=== PATIENT | male | born 1960 | race Caucasian/White ===

== ENCOUNTER 2025-01-18 20:26 | Inpatient (IN) | payer BC ==
[~2025-01-18] VITALS: Ht 188 cm; Wt 94.8 kg
[2025-01-18 21:15] LABS: BASOPHILS % 0.3 % (0.0-2.0); EOSINOPHILS % 1.2 % (0.0-5.0); HEMATOCRIT. 50.9 % (42.0-52.0); HEMOGLOBIN. 16.5 g/dL (14.0-18.0); LYMPHOCYTES % 33.1 % (20.0-50.0); MEAN PLATELET VOLUME 7.8 fl (7.4-10.4); MONOCYTES % 5.1 % (2.0-8.0); NEUTROPHILS % 60.3 % (40.0-76.0); PLATELET 261 x1000/uL (130-400); RED BLOOD CELL COUNT 5.33 mill/uL (4.7-6.1); RED CELL DISTRIBUTION WIDTH 14.2 % (11.6-14.6)
[2025-01-18] MEDS: DIPHENHYDRAMINE 50MG/ML VIAL IV ONE (21:21)
[2025-01-18] MEDS: METHYLPREDNISOLONE SOD SUCC 125MG/2ML (ACT-O-VIAL) IV ONE (21:21)
[2025-01-18] MEDS: FAMOTIDINE 20MG/2ML VIAL IV ONE (21:23)
[2025-01-18 22:07] LABS: CREATININE 1.0 mg/dL (0.6-1.3); UREA NITROGEN BLOOD 11 mg/dL (9-23)
[2025-01-18 22:08] LABS: TROPONIN I HIGH SENSITIVITY 12 ng/L (3.0-53)
[2025-01-18] MEDS: EPINEPHRINE 1:1000 1 MG/ML AMP INJ ONE (22:55)
[2025-01-19] VITALS (9 sets, daily range): BP systolic 101–127; BP diastolic 65–85; PULSE 75–87; RESP 15–23; TEMP 36.3–37.4; O2SAT 74–95
[2025-01-19] MEDS ORDERED: ONDANSETRON HCL 4MG/2ML INJ IV PRN (00:30)
[2025-01-19] MEDS ORDERED: ACETAMINOPHEN 325MG TABLET PO PRN ×2 (00:30)
[2025-01-19] MEDS: SODIUM CHLORIDE 0.9% 1,000 ML IV SCH (00:30)
[2025-01-19] MEDS ORDERED: IPRATROPIUM/ALBUTEROL 0.5-3(2.5)MG/3ML NEB HHN PRN (00:30)
[2025-01-19] MEDS ORDERED: FAMOTIDINE 20MG/2ML VIAL IV SCH (00:30)
[2025-01-19] MEDS: KCL 20MEQ/100ML PREMIX 100 ML IV NR (02:13)
[2025-01-19] MEDS: METHYLPREDNISOLONE SOD SUCC 40MG/ML (ACT-O-VIAL) IV SCH (02:15)
[2025-01-19 03:54] LABS: *AMPHETAMINES SCREEN URINE NEGATIVE (NEGATIVE); *BARBITURATES SCREEN URINE NEGATIVE (NEGATIVE); *BENZODIAZEPINES SCREEN URINE NEGATIVE (NEGATIVE); *COCAINE SCREEN URINE NEGATIVE (NEGATIVE); CANNABINOID URINE SCREEN NEGATIVE (NEGATIVE); ECSTASY MDMA SCREEN URINE NEGATIVE (NEGATIVE); METHADONE URINE SCREEN NEGATIVE (NEGATIVE); OPIATES URINE SCREEN NEGATIVE (NEGATIVE); PHENCYCLIDINE URINE SCREEN NEGATIVE (NEGATIVE)
[2025-01-19 03:59] LABS: COLOR URINE YELLOW (YELLOW)
[2025-01-19 04:00] LABS: CLARITY URINE CLEAR (CLEAR); GLUCOSE URINE 1+ (NEGATIVE); KETONES URINE NEGATIVE (NEGATIVE); LEUKOCYTE ESTERASE URINE NEGATIVE (NEGATIVE); NITRITE URINE NEGATIVE (NEGATIVE); OCCULT BLOOD URINE NEGATIVE (NEGATIVE); PH URINE 5.5 (4.5-8.0); PROTEIN URINE NEGATIVE (NEGATIVE); SPECIFIC GRAVITY URINE 1.007 (1.005-1.030); UROBILINOGEN URINE 0.2 E.U./dL (0.2-1.0)
[2025-01-19] MEDS ORDERED: PIPERACILLIN/TAZO 3.375G/50ML 50 ML IV SCH (06:00)
[2025-01-19 06:38] LABS: TROPONIN I HIGH SENSITIVITY 21 ng/L (3.0-53)
[2025-01-19 06:41] LABS: ASPARTATE AMINOTRANSFERASE 21 IU/L (<34)
[2025-01-19 06:42] LABS: BILIRUBIN DIRECT 0.1 mg/dL (<=3.0); BILIRUBIN TOTAL 0.5 mg/dL (0.1-1.0); PROTEIN TOTAL 6.9 g/dL (6.0-8.3)
[2025-01-19] MEDS: FAMOTIDINE 20MG/2ML VIAL IV SCH (09:42)
[2025-01-19] MEDS: DIPHENHYDRAMINE 50MG/ML VIAL IV SCH (09:43)
[2025-01-19 11:02] LABS: FOLIC ACID (FOLATE) SERUM 6.23 ng/mL (>5.38); VITAMIN B12 SERUM 400 pg/mL (211-911)
[2025-01-19] MEDS ORDERED: DEXTROSE 50% WATER 50ML SYRINGE IV PRN (16:45)
[2025-01-19] MEDS: BLOOD SUGAR DIAGNOSTIC STRIP TEST SCH (17:30)
[2025-01-19] MEDS: INSULIN LISPRO 100 UNITS/ML SUBCUT SCH (18:00)
[2025-01-20] VITALS (8 sets, daily range): BP systolic 104–154; BP diastolic 63–95; PULSE 62–84; RESP 14–18; TEMP 36.7–36.9; O2SAT 92–98
[2025-01-20 07:12] LABS: CREATININE 0.9 mg/dL (0.6-1.3); T4 FREE 1.00 ng/dL (0.89-1.76); TRIGLYCERIDE 124 mg/dL (0-150); UREA NITROGEN BLOOD 14 mg/dL (9-23)
[2025-01-20 07:13] LABS: LDL CHOLESTEROL 176 mg/dL (5-100)
[2025-01-20 09:01] LABS: HEMATOCRIT. 43.2 % (42.0-52.0); HEMOGLOBIN. 14.6 g/dL (14.0-18.0); MEAN PLATELET VOLUME 8.1 fl (7.4-10.4); PLATELET 269 x1000/uL (130-400); RED BLOOD CELL COUNT 4.70 mill/uL (4.7-6.1); RED CELL DISTRIBUTION WIDTH 13.8 % (11.6-14.6)
[2025-01-20] MEDS ORDERED: METH4TAB95 MT (12:27)
[2025-01-20] MEDS ORDERED: EPIN0.3P3 IM (12:27)
[2025-01-20] MEDS ORDERED: ATOR20TA65 PO (12:27)
[2025-01-20 15:39] LABS: LYMPHOCYTES % MANUAL 9.0 % (20.0-50.0); MONOCYTES % MANUAL 1.0 % (2.0-8.0); NEUTROPHILS % MANUAL 90.0 % (45.0-75.0); PLATELET ESTIMATE NORMAL
[2025-01-21 05:11] LABS: ETHANOL URINE Negative % (Cutoff=0.020)
== END 2025-01-20 21:00 | disposition home or self-care (01) | DRG 916 ==
LOC: ER 20:26 → 5EST 22:36 → EDBEDREQTM 22:42 → EDBEDREQ 22:42 → ENRESERV 01-19 00:19
PROVIDERS: ADMIT Hospitalist; ATTEND Hospitalist
DX: T78.09XA Anaphylactic reaction due to other food products, initial encounter (principal); E87.20 Acidosis, unspecified; D72.829 Elevated white blood cell count, unspecified; E87.6 Hypokalemia; R73.9 Hyperglycemia, unspecified; Y92.89 Other specified places as the place of occurrence of the external cause
CPT/HCPCS: 36415; 71045; 80048; 80061; 80076; 80305; 80320; 81003; 82040; 82550; 82607; 82746; 82962; 83036; 83605; 83735; 83880; 84145; 84439; 84443; 84484; 85025; 93005; 93970; 99291; J1200; J1308; J1815; J2919; J3480; J3490